=== PATIENT | female | born 1935 | race Caucasian/White ===

== ENCOUNTER 2017-05-17 23:52 | Observation (INO) | payer MEDICARE, BC ==
[2017-05-18] MEDS ORDERED: NS 0.9% 1000 ML* 1,000 ML IV ONE (00:18)
[2017-05-18 00:47] LABS: Hematocrit 38 % (35-47); Hemoglobin 12.6 g/dl (12.0-16.0); Mean Corpuscular HGB Conc 34 g/dl (31-36); Mean Corpuscular Hemoglobin 33 pg (27-31); Mean Corpuscular Volume 98 fL (80-97); Mean Platelet Volume 7 um3 (7.4-10.4); Red Blood Count 3.85 10^6/ul (4.0-5.4); Red Cell Distribution Width 14 % (10.5-15); White Blood Count 7.8 10^3/ul (3.5-10.8)
[2017-05-18 01:04] LABS: Albumin 4.4 g/dL (3.2-5.2); BUN/Creatinine Ratio 18.4 (8-20); C Reactive Protein 7.39 mg/L (< 5.00); Calcium 9.7 mg/dL (8.6-10.3); EGFR African American 70.1 (>60); EGFR Non-African American 54.5 (>60); Globulin 3.3 g/dL (2-4); Magnesium 2.4 mg/dL (1.9-2.7); Potassium 4.1 mmol/L (3.5-5.0); Total Bilirubin 0.5 mg/dL (0.2-1.0); Total Protein 7.7 g/dL (6.4-8.9)
[2017-05-18 01:11] LABS: Urine Bilirubin Negative (Negative); Urine Glucose Negative (Negative); Urine Nitrite Negative (Negative)
[2017-05-18 01:22] LABS: Urine Bacteria 2+ (Absent)
[2017-05-18] MEDS ORDERED: Acetaminophen TAB* 325 MG PO PRN (01:39)
[2017-05-18] MEDS ORDERED: Al Hydrox/Mg Hydrox/Simet LIQ* 30 ML UDC PO PRN (01:39)
[2017-05-18] MEDS ORDERED: Ondansetron INJ* 2 MG/ML VIAL IV PRN (01:39)
[2017-05-18] MEDS ORDERED: Dextrose 50% Syringe 50 ML* 25 GM/50 ML SYRINGE IV PUSH PRN (01:42)
[2017-05-18] MEDS ORDERED: Iodixanol* (CONTRAST) 320 MG/ML 100 ML SDV IV ONE (01:57)
--- NOTE | 2017-05-18 03:43 | HP ---
CC: Nadia Jimenez MD * HISTORY AND PHYSICAL: DATE OF ADMISSION: 05/18/17 TIME OF EVALUATION: 0100 PRIMARY CARE PHYSICIAN: Nadia Jimenez MD. CHIEF COMPLAINT: Bright red blood per rectum. HISTORY OF PRESENT ILLNESS: This is an 82-year-old female with a past medical history coronary artery disease, on baby aspirin, who presents to the emergency room with acute onset of bright red blood per rectum. The patient states she was in her usual state of health today when she went to go use the bathroom and had small amount of bright red blood per rectum and then as the day went on, she had more frequent larger episodes of bright red blood with dark red clots. She was concerned about the volume of bleeding and came to the emergency room. She has some abdominal discomfort. No nausea, vomiting. She states she has normal bowel movements daily, more on the loose side. No history of bloody bowel movements in the past. She has had a colonoscopy, but was told after 81, it was no longer indicated. When she has had colonoscopies in the past, they have been unremarkable. She has had some chills since the onset of this and some anxiety. No chest pain. No shortness of breath. Slight changes in her weight with the weight gain. Otherwise, remainder of review of systems is negative. In the emergency room, the patient had labs and was referred to the hospitalist service for further evaluation. PAST MEDICAL HISTORY: 1. Hyperlipidemia. 2. Diabetes. 3. Osteoarthritis. 4. History of coronary artery disease. MEDICATIONS: The patient is unsure of the exact medications. She lists them out without the dosages and they are as follows. This will need to be confirmed in the morning. 1. Metformin. 2. Simvastatin. 3. Carvedilol. 4. Supplements. 5. Glucosamine chondroitin. 6. Aspirin 81 mg p.o. daily. ALLERGIES: SULFA. FAMILY HISTORY: Father at age 89 from emphysema. Mother in her 90s from old age. SOCIAL HISTORY: The patient lives at home with her , Bon, who is her healthcare proxy. She exercises regularly at [employer] with swimming. She is independent of her ADLs. She has two grown children. No history of smoking, alcohol or illicit drug use. She is a full code. REVIEW OF SYSTEMS: A 14-point review of systems was reviewed and all pertinent positives and negatives as mentioned in the HPI. Otherwise remaining are negative. PHYSICAL EXAMINATION GENERAL: In no acute distress, resting comfortably with her at the bedside. VITAL SIGNS: Temp 98.2, pulse rate 69, respiratory rate 16, oxygen saturation 97% on room air, blood pressure 178/66. HEENT: Head normocephalic. Pupils are equal and reactive. Anicteric. No conjunctival pallor. Oropharynx, mucous membranes moist. NECK: Supple. No lymphadenopathy. RESPIRATORY: Clear to auscultation. No wheezing, rhonchi or rales. CARDIAC: Regular rate and rhythm. No murmurs, rubs or gallops. ABDOMEN: Hyperactive bowel sounds, morbidly obese, small mild diffuse tenderness, mild distension. No rebound or guarding. EXTREMITIES: No clubbing, cyanosis or edema, +1 DPs. NEUROLOGIC: Alert and oriented x3. No focal neurological deficits. LABORATORY DATA: White count 7.8, hemoglobin 12.6, hematocrit 38, platelets 276,000. INR 0.79. Sodium 134, potassium 4.1, chloride 100, bicarb 25, BUN 18 , creatinine 0.99. Glucose 115. CRP 7.39. Lipase 28. Total bili 0.5. AST is 22, ALT is 16. Urinalysis shows low specific gravity, +3 blood, although the patient mentioned that she was having a bloody movement. She was having bloody stool output while urinating. ASSESSMENT: This is a 82-year-old female with a past medical history of diabetes and coronary artery disease, who presents to the emergency room with bright red blood per rectum. 1. Bright red blood per rectum. Assessment: History and physical are most suspicious for a diverticular bleed. She has some diffuse abdominal tenderness and Dr. Reis has gone on to order CAT scan of the abdomen and pelvis, which has not yet been completed. She has no presyncopal symptoms of lightheadedness or dizziness at this time. Plan: We will admit her to [address] [place] [id number]. We will repeat her H and H in 4 hours as she is continuing to have bright red blood per rectum output. We will follow up on her CAT scan. If she continues to bleed, I would recommend a GI consultation. We will place her on a clear liquid diet at this time as well. She has been typed and screened for potential transfusion if indicated. 2. Chronic medical problems. I put in a call to the pharmacy to do a med reconciliation. 3. Coronary artery disease. Continue carvedilol, put her on a low dose because we are unclear what dose she is on. 4. Diabetes. We will hold her metformin, place her on lispro sliding scale. 5. FEN. We will place her on a clear liquid diet. Hold off on IV fluids at this time. 6. DVT prophylaxis. The patient scores as a high risk. We will place her SCDs. 7. Code status. Full code. PATIENT TIME: Greater than 60 minutes was spent doing this history and physical , more than half the time was spent in direct patient contact. [id number]/[facility]PS #: [id number] KVNG
[2017-05-18 06:21] LABS: Hematocrit 35 % (35-47); Hemoglobin 11.9 g/dl (12.0-16.0); Mean Corpuscular HGB Conc 34 g/dl (31-36); Mean Corpuscular Hemoglobin 33 pg (27-31); Mean Corpuscular Volume 97 fL (80-97); Mean Platelet Volume 7 um3 (7.4-10.4); Red Blood Count 3.61 10^6/ul (4.0-5.4); Red Cell Distribution Width 14 % (10.5-15); White Blood Count 7.4 10^3/ul (3.5-10.8)
--- NOTE | 2017-05-18 07:49 | RAD ---
CLINICAL HISTORY: Rectal bleeding COMPARISON: None TECHNIQUE: Multiple contiguous axial CT scans were obtained of the abdomen and pelvis after the administration of intravenous contrast. Coronal and sagittal multiplanar reformations are submitted for review. Oral contrast was administered. Delayed images were obtained through the abdomen and pelvis. FINDINGS: LUNG BASES: The lung bases are clear. LIVER: The liver is diffusely low in attenuation compared to the spleen. There are no focal hepatic parenchymal masses. BILE DUCTS: There is no intrahepatic or extrahepatic biliary dilatation. GALLBLADDER: The gallbladder is normal, without pericholecystic inflammatory change. PANCREAS: The pancreas is normal, without mass or ductal dilatation. SPLEEN: Normal in size and appearance. UPPER GI TRACT: Evaluation of the gastrointestinal tract is limited by incomplete gastric distention. There is a moderate sliding hiatal hernia SMALL BOWEL AND MESENTERY: The small bowel is normal in contour, course, and caliber. There is no obstruction or dilatation. COLON: There is extensive diverticulosis of the descending and sigmoid colon. There is no pericolonic inflammatory change. ADRENALS: Normal bilaterally. KIDNEYS: The left kidney is hypoplastic versus atrophic. This appears to reflect atrophy of the upper pole of the right kidney in the setting of a duplicated renal collecting system. There is no appreciable hydronephrosis or nephrolithiasis. BLADDER: The bladder is smooth in contour. PELVIC ORGANS: The pelvic organs are not visualized. AORTA: There is calcific atherosclerotic disease of the abdominal aorta and its branches, without aneurysmal dilatation IVC: Unremarkable LYMPH NODES: There is no lymphadenopathy by size criteria. ABDOMINAL WALL: There is no evidence for abdominal wall hernia. BONES AND SOFT TISSUES: Degenerative changes are noted most pronounced along the lumbar spine OTHER: None IMPRESSION: 1. EXTENSIVE DIVERTICULOSIS OF THE DISTAL COLON WITHOUT PERICOLONIC INFLAMMATORY CHANGE TO SUGGEST ACUTE DIVERTICULITIS. 2. 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 3. HIATAL HERNIA. 4. ATHEROSCLEROSIS. 5. FATTY LIVER
[2017-05-18] MEDS ORDERED: Carvedilol TAB* 3.125 MG PO SCH (09:00)
[2017-05-18] MEDS: Insulin LISPRO* 1 UNITS UNIT SUBCUT SCH ×3 (09:54→19:10)
--- NOTE | 2017-05-18 10:47 | PN ---
Subjective Date of Service: 05/18/17 Interval History: Patient seen and examined at bedside. She is here with c/o BRBPR starting yesterday as well as abdominal pain. She reports that the abdominal pain has improved and is only a "mild tenderness." She reports an episode of loose stool this morning with some blood, but it has lessened in amount. Family History: Unchanged from Admission Social History: Unchanged from Admission Past Medical History: Unchanged from Admission Objective Active Medications: Acetaminophen (Tylenol Tab*) 650 mg PO Q4H PRN PRN Reason: FEVER/PAIN Al Hydrox/Mg Hydrox/Simethicone (Maalox Plus*) 30 ml PO Q6H PRN PRN Reason: INDIGESTION Carvedilol (Coreg Tab*) 3.125 mg PO BID [facility] Last Admin: 05/18/17 09:27 Dose: 3.125 mg Dextrose (D50w Syringe 50 Ml*) 12.5 gm IV PUSH .FOR FS < 60 - SS PRN PRN Reason: FS < 60 Insulin Human Lispro (Humalog*) 0 units SUBCUT AC [facility] PRN Reason: Protocol Last Admin: 05/18/17 09:54 Dose: 3 units Ondansetron HCl (Zofran Inj*) 4 mg IV Q4H PRN PRN Reason: NAUSEA/VOMITING Vital Signs 05/18/17 05/18/17 05/18/17 01:48 03:08 03:15 Temperature 98.2 F 97.8 F Pulse Rate 69 77 Respiratory 13 16 16 Rate Blood Pressure 178/66 142/61 (mmHg) O2 Sat by Pulse 97 98 Oximetry Oxygen Devices in Use Now: None Appearance: Elderly female, lying in bed, NAD Eyes: No Scleral Icterus Ears/Nose/Mouth/Throat: Clear Oropharnyx, Mucous Membranes Moist Neck: NL Appearance and Movements; NL JVP Respiratory: Symmetrical Chest Expansion and Respiratory Effort, Clear to Auscultation Cardiovascular: NL Sounds; No Murmurs; No JVD, RRR Abdominal: - - Mild diffuse tenderness, no distention, BS present x 4 Extremities: No Edema Skin: No Rash or Ulcers Neurological: Alert and Oriented x 3, NL Muscle Strength and Tone Lines/Tubes/Other Access: Clean, Dry and Intact Peripheral IV Nutrition: Taking PO's Result Diagrams: 05/18/17 06:05 05/18/17 00:30 Assess/Plan/Problems-Billing Assessment: Ms. Osorio is an 82 yo female with a PMH of HLD, DM, OA, and CAD who presented to the ED on 05/17/17 with concern for BRBPR and abdominal pain. - Patient Problems (1) Bright red blood per rectum Code(s): K62.5 - HEMORRHAGE OF ANUS AND RECTUM Comment: Patient's CT abd/pelvis shows concern for extensive diverticulosis Suspect patient likely has a diverticular bleed which appears to be improving. Recheck HH, continue to trend If patient's symptoms continue to improve, plan to advance diet If symptoms worsen or recur, plan to consult GI (2) CAD (coronary artery disease) Code(s): I25.10 - ATHSCL HEART DISEASE OF [place] CORONARY ARTERY W/O ANG PCTRS Comment: Stable Continue carvedilol, statin Hold ASA with acute bleeding (3) Type 2 diabetes mellitus Comment: BG controlled Continue Lispro SSI Resume home metformin at discharge (4) HLD (hyperlipidemia) Code(s): E78.5 - HYPERLIPIDEMIA, UNSPECIFIED Comment: Continue statin. (5) Osteoarthritis Code(s): M19.90 - UNSPECIFIED OSTEOARTHRITIS, UNSPECIFIED SITE Comment: Continue prn acetaminophen. (6) DVT prophylaxis Code(s): EGR6462 - Comment: SCDs Anticoagulation contraindicated in acute gastrointestinal bleed Status and Disposition: Inpatient admission. Anticipate potential dc in 1-2 days.
[2017-05-18] MEDS ORDERED: Carvedilol TAB* 3.125 MG PO ONE (10:58)
[2017-05-18] MEDS: Fluticasone NASAL SPRAY 50MCG* 16 gm SPRAY BTL BOTH NARES SCH ×2 (11:42→20:16)
[2017-05-18 12:41] LABS: Hematocrit 35 % (35-47); Hemoglobin 11.5 g/dl (12.0-16.0)
[2017-05-18] MEDS: Carvedilol TAB* 6.25 MG PO SCH (20:13)
[2017-05-19 06:10] LABS: Hematocrit 35 % (35-47); Hemoglobin 11.6 g/dl (12.0-16.0); Mean Corpuscular HGB Conc 33 g/dl (31-36); Mean Corpuscular Hemoglobin 32 pg (27-31); Mean Corpuscular Volume 98 fL (80-97); Mean Platelet Volume 7 um3 (7.4-10.4); Red Blood Count 3.58 10^6/ul (4.0-5.4); Red Cell Distribution Width 14 % (10.5-15); White Blood Count 7.2 10^3/ul (3.5-10.8)
[2017-05-19 08:02] VITALS: BP 130/52
[2017-05-19] MEDS ORDERED: Atorvastatin* 20 MG TAB PO SCH (09:00)
[2017-05-19] MEDS: Insulin LISPRO* 1 UNITS UNIT SUBCUT SCH (09:25)
[2017-05-19] MEDS: Carvedilol TAB* 6.25 MG PO SCH (09:29)
[2017-05-19] MEDS: Fluticasone NASAL SPRAY 50MCG* 16 gm SPRAY BTL BOTH NARES SCH (09:30)
--- NOTE | 2017-05-19 10:07 | DCNOTE ---
Subjective Date of Service: 05/19/17 Interval History: Patient seen and examined at bedside. She is ambulating in the room and talking with her roommate. She reports feeling "so much better" and is hopeful to go home. Denies any further abd pain, bloody stools, n/v/d. We discussed s/s to monitor at home, including fever/chills, abd pain, and recurrent bloody stools. Family History: Unchanged from Admission Social History: Unchanged from Admission Past Medical History: Unchanged from Admission Objective Active Medications: Acetaminophen (Tylenol Tab*) 650 mg PO Q4H PRN PRN Reason: FEVER/PAIN Al Hydrox/Mg Hydrox/Simethicone (Maalox Plus*) 30 ml PO Q6H PRN PRN Reason: INDIGESTION Atorvastatin Calcium (Lipitor*) 20 mg PO DAILY [facility] Last Admin: 05/19/17 09:29 Dose: 20 mg Carvedilol (Coreg Tab*) 12.5 mg PO BID [facility] Last Admin: 05/19/17 09:29 Dose: 12.5 mg Dextrose (D50w Syringe 50 Ml*) 12.5 gm IV PUSH .FOR FS < 60 - SS PRN PRN Reason: FS < 60 Fluticasone Propionate (Flonase Nasal [place] 50mcg*) 2 spray BOTH NARES BID [facility] Last Admin: 05/19/17 09:30 Dose: 2 spray Insulin Human Lispro (Humalog*) 0 units SUBCUT AC [facility] PRN Reason: Protocol Last Admin: 05/19/17 09:25 Dose: Not Given Ondansetron HCl (Zofran Inj*) 4 mg IV Q4H PRN PRN Reason: NAUSEA/VOMITING Vital Signs 05/18/17 05/18/17 05/18/17 15:10 19:16 20:11 Temperature 98.0 F 98.1 F Pulse Rate 72 80 Respiratory 15 18 17 Rate Blood Pressure 121/56 122/47 (mmHg) O2 Sat by Pulse 98 97 Oximetry 05/18/17 05/19/17 05/19/17 23:37 04:32 07:52 Temperature 98.3 F 98.1 F 98.2 F Pulse Rate 77 69 70 Respiratory 16 16 18 Rate Blood Pressure 112/57 134/58 130/52 (mmHg) O2 Sat by Pulse 99 99 94 Oximetry 05/19/17 08:00 Temperature Pulse Rate Respiratory 18 Rate Blood Pressure (mmHg) O2 Sat by Pulse Oximetry Oxygen Devices in Use Now: None Appearance: Older female, ambulating in room, well-appearing, NAD Eyes: No Scleral Icterus, PERRLA Ears/Nose/Mouth/Throat: Clear Oropharnyx, Mucous Membranes Moist Neck: NL Appearance and Movements; NL JVP Respiratory: Symmetrical Chest Expansion and Respiratory Effort, Clear to Auscultation Cardiovascular: NL Sounds; No Murmurs; No JVD, RRR Abdominal: NL Sounds; No Tenderness; No Distention Extremities: No Edema Neurological: Alert and Oriented x 3, NL Gait, NL Muscle Strength and Tone Lines/Tubes/Other Access: Clean, Dry and Intact Peripheral IV Nutrition: Taking PO's Result Diagrams: 05/19/17 05:49 05/18/17 00:30 Assess/Plan/Problems-Billing Assessment: Ms. Osorio is an 82 yo female with a PMH of HLD, DM, OA, and CAD who presented to the ED on 05/17/17 with concern for BRBPR and abdominal pain. - Patient Problems (1) Bright red blood per rectum Code(s): K62.5 - HEMORRHAGE OF ANUS AND RECTUM Comment: Resolved, likely a diverticular bleed. Patient's CT abd/pelvis shows concern for extensive diverticulosis HH stable Tolerating soft diet (2) CAD (coronary artery disease) Code(s): I25.10 - ATHSCL HEART DISEASE OF [place] CORONARY ARTERY W/O ANG PCTRS Comment: Stable Continue carvedilol, statin Resume ASA in 3 days, if no further episodes of bleeding. (3) Type 2 diabetes mellitus Comment: BG controlled Continue Lispro SSI Resume home metformin at discharge (4) HLD (hyperlipidemia) Code(s): E78.5 - HYPERLIPIDEMIA, UNSPECIFIED Comment: Continue statin. (5) Osteoarthritis Code(s): M19.90 - UNSPECIFIED OSTEOARTHRITIS, UNSPECIFIED SITE Comment: Continue prn acetaminophen. (6) DVT prophylaxis Code(s): [id number] - Comment: SCDs Anticoagulation contraindicated in acute gastrointestinal bleed Status and Disposition: Inpatient admission. Dc to home.
--- NOTE | 2017-05-20 03:28 | DS ---
CC: Dr. Jimenez * DISCHARGE SUMMARY: DATE OF ADMISSION: 05/18/17 DATE OF DISCHARGE: 05/19/17 PRIMARY CARE PHYSICIAN: Dr. Nadia Jimenez MD. PROVIDER: Ahmet Cline NP ATTENDING PHYSICIAN: New Griffith MD * (as dictated by Ahmet Cline NP). PRIMARY DISCHARGE DIAGNOSIS: Gastrointestinal bleeding, suspect diverticular, now resolved. SECONDARY DISCHARGE DIAGNOSES: 1. Hypertension. 2. Diabetes type 2. 3. Osteoarthritis. 4. History of coronary artery disease. HOME MEDICATIONS AT DISCHARGE: 1. CoQ10 one tab t.i.d. 2. Carvedilol 12.5 mg b.i.d. 3. Nasonex 2 sprays both nostrils b.i.d. 4. [place]-3 fatty acids 1000 mg t.i.d. 5. Glucosamine and chondroitin 1 tab t.i.d. 6. Simvastatin 40 mg 1 tab daily. 7. Metformin 500 mg daily. 8. Aspirin 81 mg daily. Patient is instructed to resume on Thursday if no further signs and symptoms of bleeding. DIAGNOSTIC TESTING DURING THIS ADMISSION: CT of the abdomen and pelvis - impression: 1. Extensive diverticulosis of the distal colon without pericolonic inflammatory change to suggest acute diverticulitis. 2. Duplicated left renal collecting system with atrophy of the pole moiety. 3. Hiatal hernia. 4. Atherosclerosis. 5. Fatty liver. HOSPITAL COURSE OF STAY: For full details, please refer to the H and P provided by Dr. Merchant. In summary, Ms. Osorio is an 82-year-old female who presented to the hospital with concern for acute onset of bright red blood per rectum. Patient also reported accompanying abdominal discomfort but denied any nausea or vomiting. She was admitted under observation to the medicine floor over the course of the morning of 05/18/17. The patient's stools had lessened in amount and the bleeding had resolved on its own. Her H and H remained stable throughout her admission with the last noted values of 11.6 and 35. The patient denied any further signs and symptoms of bleeding. She had been tolerating clear liquids. She was advanced to a soft diet on the evening of 08/25 and the morning of 05/19/17 was in good spirits, was ambulatory, denying pain, denying any further bleeding episodes. The patient had no signs of acute infection including lack of fever and a normal white blood cell count. Patient' s renal function was also at her baseline normal limits. She had a mildly elevated CRP at 7.39, no other acute concerns. Patient felt ready to go home, denied any further complaints. Patient was advised to continue monitoring for any abdominal pain or recurrence of bleeds. CONCERNS AT DISCHARGE: Ms. Osorio will be discharged to home on 05/19/17 and is to follow up with her PCP within the next 7 to 10 days. She has been advised to hold on her aspirin until bleeding is fully resolved and she will resume on Thursday05/22/17 if no further bleeding presents itself. DIET: Soft diet, advance as tolerated. Patient was given education regarding diet for diverticulosis. ACTIVITY: As tolerated. CONDITION: Stable. DISPOSITION: Home. TIME SPENT: Time spent on this discharge was approximately 40 minutes. Again, this is only a brief summary of the patient's hospital course of stay. For full details, please refer to the full medical record. If you have any further questions or need further assistance, please feel free to contact me at [phone]. AHMET CLINE, HERMAN [id number]/[facility] #: [id number] KVNG
== END 2017-05-19 11:00 | disposition home or self-care (01) ==
LOC: ED 23:52 → INTOOBSV 05-18 01:39 → MED 05-18 01:39
PROVIDERS: ADMIT Pediatrics; ATTEND Internal Medicine
DX: K92.2 Gastrointestinal hemorrhage, unspecified (principal); I10 Essential (primary) hypertension; E11.9 Type 2 diabetes mellitus without complications; M19.90 Unspecified osteoarthritis, unspecified site; K44.9 Diaphragmatic hernia without obstruction or gangrene; I25.10 Atherosclerotic heart disease of native coronary artery without angina pectoris; Z79.84 Long term (current) use of oral hypoglycemic drugs; Z79.82 Long term (current) use of aspirin; Z79.899 Other long term (current) drug therapy; Z88.2 Allergy status to sulfonamides
CPT/HCPCS: 36415; 74177; 80053; 81003; 81015; 83605; 83690; 83735; 85014; 85018; 85025; 85610; 86140; 86850; 86900; 86901; 87086; 93005; 96360; 99283; A9270-GY; G0378; Q9967

== ENCOUNTER 2019-09-15 09:10 | Emergency (ER) | payer MEDICARE, BC ==
[2019-09-15] MEDS ORDERED: Silver Sulfadiazine 1%* 20 GM TOPICAL ONE (09:42)
--- OUTSIDE RECORDS SUMMARY | 2019-09-15 09:56 | XMS REPORT | Continuity of Care Document ---
:1935 External Reference #:[id number] Author Name Nadia Jimenez M.D. Address [address] [place] [address] Care Team Providers Name Role Phone Nadia Jimenez - Family Medicine Care Team Information Machine Slat Basket Maker [phone] Lauren Dash MD - Surgery of the Care Team Information Machine Slat Basket Maker Hand Shahid Wiggins MD - Pulmonary Disease Care Team Information Machine Slat Basket Maker [phone] [facility] [place] Radiology Department - Diagnostic Care Team Information Machine Slat Basket Maker Radiology Luigi Denney MD - Cardiovascular Care Team Information Machine Slat Basket Maker Disease Problems Active Problems Provider Date Coronary arteriosclerosis Mariana Sterling M.D. Onset: 10/30/2011 Overweight Mariana Sterling M.D. Onset: 10/30/2011 Motion sickness Mariana Sterling M.D. Onset: 10/30/2011 Adult health examination Mariana Sterling M.D. Onset: 05/05/2012 Hyperlipidemia Mariana Sterling M.D. Onset: 05/05/2012 Pure hyperglyceridemia Nadia Jimenez M.D. Onset: 10/15/2012 Type 2 diabetes mellitus Nadia Jimenez M.D. Onset: 09/03/2016 Other hyperlipidemia Nadia Jimenez M.D. Onset: 01/04/2019 Social History Type Date Description Comments Sex Unknown Tobacco Use Start: Unknown Never Smoked Cigarettes Smoking Status Reviewed: 08/11/19 Never Smoked Cigarettes ETOH Use Rare 2 glasses wine/year Tobacco Use Start: Unknown Patient has never smoked Allergies, Adverse Reactions, Alerts Active Allergies Reaction Severity Comments Date Erythromycin 06/07/1999 Sulfa Drugs 06/07/1999 Shellfish Diarrhea 03/03/2005 Iodine 01/14/2010 Medications Active Medications SIG Qnty Indications Ordering Provider Date Tetanus, Diptheria 1 sub q. one Z23 Nadia L. 01/04/2019 Pertussis Tana Jimenez Meclizine HCL 1 po tid for 90tabs Nadia Alamo 04/30/2017 25mg vertigo/motion Tana Jimenez Tablets sickness prn Metformin HCL Take 1 Tablet By 90tabs E11.9 Nadia Alamo 12/17/2016 500mg Mouth Once Daily Tana Jimenez Tablets Coenzyme Q10 1 by mouth Nadia Alamo 04/02/2016 100mg Tana Jimenez Capsules Lyman 3 2-3 po qd Mariana Yañez 12/23/2011 1000mg Capsules Tana Sterling Nasonex 1 sprays twice a 17units J30.0 Nona Cindy 10/30/2011 50mcg/Act day each nostril HERMAN Maciel Suspension Glucosamine 1 po bid-tid Family Medicine 04/29/2010 C[facility] Coreg 1 PO bid 0tabs Family Medicine 12/30/2006 12.5mg Tablets [facility] Zocor 1 Tab PO QHS 0tabs [facility] Medicine 12/30/2006 40mg Tablets [facility] Multivitamins Bess evans 12/30/2006 Tablets Tana Melgar Aspir-[address] Massey 1 qam, 1 @ noon, Unknown 325mg Tablets 1 @ dinner and 2 qhs Immunizations CPT Code Status Date Vaccine Lot # [id number] Given 01/04/2019 Tdap Tetanus, W Pertussis 95341 Given 08/15/2018 Influenza Vac, Quadriv[place] [address] Given 08/24/2017 Influenza Vac, [place] [address] Given 09/03/2016 High-Dose, Influenza Virus Vacccine-fluzone 65 [id number] and older 31123 Given 05/22/2015 Pneumococcal Conjugate Vacc-13 [id number] 81539 Given 08/14/2014 High-Dose, Influenza Virus Vacccine-fluzone 65 and older 91660 Given 09/26/2013 High-Dose, Influenza Virus Vacccine-fluzone 65 [id number] and older Q2038 Given 08/21/2012 Split Influenza Medicare: Fluzone [id number] 01765 Given 05/05/2012 Zostivax [id number] Q2038 Given 08/02/2011 Split Influenza Medicare: Fluzone [id number] 46268 Given 08/09/2010 DO Not Use Split Influenza Virus Vaccine [id number] 99292 Given 07/23/2009 DO Not Use Split Influenza Virus Vaccine [id number] 22433 Given 09/23/2008 DO Not Use Split Influenza Virus Vaccine [id number] 63898 Given 04/04/2008 Tetanus And Diptheria Adult Preservative Free [id number] >7Yrs 12637 Given 09/08/2007 DO Not Use Split Influenza Virus Vaccine [id number] 40028 Given 09/18/2006 DO Not Use Split Influenza Virus Vaccine [id number] 84486 Given 08/20/2005 DO Not Use Split Influenza Virus Vaccine 31357 Given 08/30/2003 DO Not Use Split Influenza Virus Vaccine 24160 Given 08/30/2003 DO Not Use Split Influenza Virus Vaccine 63063 Given 12/28/2002 DO Not Use Split Influenza Virus Vaccine 83702 Given 09/29/2001 Pneumococcal Immunization 55889 Given 09/29/2001 Influenza Immunization 58382 Given 09/29/2001 DO Not Use Split Influenza Virus Vaccine Vital Signs Date Vital Result Comment 08/11/2019 1:20pm BP Systolic 112 mmHg BP Diastolic 60 mmHg Heart Rate 88 /min Body Temperature 97.9 F Respiratory Rate 12 /min Height 63 inches 5'3" per pt Weight 167.00 lb BMI (Body Mass Index) 29.6 kg/m2 02/09/2019 1:57pm BP Systolic 130 mmHg BP Diastolic 70 mmHg Heart Rate 78 /min Body Temperature 97.3 F Respiratory Rate 18 /min Weight 166.00 lb Results Description No Information Available Procedures Date Code Description Status 01/22/2019 [id number] Mammogram Completed 11/19/2017 [id number] Mammogram Completed 09/26/2016 [id number] Mammogram Completed 05/31/2015 [id number] Mammogram Completed 07/22/2010 [id number] Mammogram Completed 01/18/2010 [id number] Mammogram Completed 11/09/2008 560594356 Bone Mineral Density Test Completed 04/18/2008 [id number] Mammogram Completed 01/20/2007 [id number] Colonoscopy Completed 01/04/2007 [id number] Mammogram Completed Medical Devices Description No Information Available Encounters Description No Information Available Assessments Date Code Description Provider 08/11/2019 E11.9 Type 2 diabetes mellitus without Nadia Jimenez M.D. complications 08/11/2019 I25.10 Atherosclerotic heart disease of [place] Nadia Jimenez M.D. coronary artery with 08/11/2019 R23.8 Other skin changes Nadia Jimenez M.D. 08/11/2019 R53.83 Other fatigue Nadia Jimenez M.D. Plan of Treatment 08/11/2019 - Nadia Jimenez M.D.E11.9 Type 2 diabetes mellitus without complicationsNew Labs:Hemoglobin A1c, Ordered: 08/11/19Comments:Hemoglobin A1c = 6.1. Well controlled. You will get your flu shot at the drug store.Follow up: 6 months.I25.10 Atherosclerotic heart disease of [place] coronary artery withComments:Stable. Continue present meds.R23.8 Other skin changesComments:you will call and make an appointment with Dr. Hamilton for removal of the lesion on her right arm, and wart on left pinky finger.R53.83 Other fatigueNew Labs:CBC Electronic ([facility]), Ordered: 08/11/19CCS-Comp Metabolic ([facility]), Ordered: 08/11/19TS ([facility]), Ordered: 08/11/19Vitamin B12 And Folate Serum, Ordered: 08/11/19Comments:If all your bloodwork is normal, it could be that you are feeling somewhat depressed and feel it as fatigueAllComments:Medication Management Patient Understands medications she's taking? Yes No Are there Barriers to Adherence? Yes No Has the patient been asked about herbal supplements and therapies, and OTC meds? Yes No Care Plan1. Patient has been queried about patient's goals/preferences and functional/lifestyle goals at relevant visits. If relevant, describe: na2. Treatment goals asexplained to the patient: above3. Are there barriers to meeting treatment goals? Yes No IfYes, please describe:4. Self- Management goals as described to the patient: Yes No as above. Functional Status Description No Information Available Mental Status Description No Information Available Referrals Description No Information Available
[2019-09-15 10:30] VITALS: BP 139/87
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
== END 2019-09-15 10:25 | disposition home or self-care (01) ==
LOC: ED 09:10
DX: T23.201A Burn of second degree of right hand, unspecified site, initial encounter (principal); T31.0 Burns involving less than 10% of body surface; X12.XXXA Contact with other hot fluids, initial encounter; Y92.9 Unspecified place or not applicable; E11.9 Type 2 diabetes mellitus without complications; I10 Essential (primary) hypertension; Z79.84 Long term (current) use of oral hypoglycemic drugs; Z79.899 Other long term (current) drug therapy; Z88.2 Allergy status to sulfonamides
CPT/HCPCS: 99282; A9270-GY